=== PATIENT | female | born 1945 | race Caucasian/White ===

== ENCOUNTER 2017-03-26 08:51 | Inpatient (IN) | payer MEDICARE ==
[2017-03-26] VITALS (7 sets, daily range): BP systolic 129–180; BP diastolic 69–101; PULSE 69–97; RESP 16–20; TEMP 96.1–98.6; O2SAT 94–99
[~2017-03-26] VITALS: Ht 165.1 cm; Wt 82.0 kg
[~2017-03-26 08:51] MED LIST: ASPI81 PO; GLUCTAB PO; LEVO112T2 PO
--- NOTE | 2017-03-26 09:08 | PD ---
HPI Chief Complaint: Right sided numbness Time Seen by Provider: 08:55 Travel History International Travel<30 days: No Contact w/Intl Traveler<30days: No History of Present Illness HPI 71yo F with PMH of DM, hypothyroidism here with c/o right sided numbness when she woke up at 6am today. States she has been having some numbness in right arm for about a week and went to bed at 10pm yesterday and woke up this morning with right facial numbness and a little numbness in right lower extremity as well. Had a little weakness in right lower extremity. Pt states her symptoms have improved significantly since arriving in the ED. Denies any history of stroke, fever, chest pain, sob, n/v, abdominal pain. PFSH Past Medical History Hx Anticoagulant Therapy: No Arthritis: Yes Cardiovascular Problems: No High Cholesterol: Yes Chemotherapy: No Cerebrovascular Accident: No Diabetes: Yes Diminished Hearing: No Diverticulitis: Yes Genitourinary: Yes (UTI) Respiratory: No Immunizations Current: No Thyroid Disease: Yes Menopausal: Yes Tubal Ligation: Yes Past Surgical History Abdominal Surgery: Yes (COLON RESECTION) Cholecystectomy: Yes Gynecologic Surgery: Yes (BREAST BIOPSY) Hysterectomy: No Tonsillectomy: Yes Other Surgery: Yes (BREAST BIOPSY X 2, NEC RIGHT LATERIAL CYST REMOVAL ) Social History Alcohol Use: No Tobacco Use: No Substance Use: No Allergies-Medications (Allergen,Severity, Reaction): Coded Allergies: No Known Allergies (Verified , 03/26/17) Reported Meds & Prescriptions Reported Meds & Active Scripts Active Reported Methenamine Hippurate 1 Gram Tab 1 Gm PO BID Aspirin EC (Aspirin) 81 Mg Tabdr 81 Mg PO DAILY Metformin ER (Metformin HCl) 500 Mg Eddie 500 Mg PO DAILY With evening meal Levothyroxine (Levothyroxine Sodium) 100 Mcg Tab 100 Mcg PO DAILY Review of Systems Except as stated in HPI: all other systems reviewed are Neg Physical Exam Narrative GENERAL: 71yo F not in distress. SKIN: Focused skin assessment warm/dry. HEAD: Atraumatic. Normocephalic. EYES: Pupils equal and round. No scleral icterus. No injection or drainage. ENT: No nasal bleeding or discharge. Mucous membranes pink and moist. NECK: Trachea midline. No JVD. CARDIOVASCULAR: Regular rate and rhythm. No murmur appreciated. RESPIRATORY: No accessory muscle use. Clear to auscultation. Breath sounds equal bilaterally. GASTROINTESTINAL: Abdomen soft, non-tender, nondistended. Hepatic and splenic margins not palpable. MUSCULOSKELETAL: No obvious deformities. No clubbing. No cyanosis. No edema. NEUROLOGICAL: Awake and alert. No obvious cranial nerve deficits. Motor grossly within normal limits. Normal speech. Sensation is equal in bilateral face, arm and leg now. PSYCHIATRIC: Appropriate mood and affect; insight and judgment normal. Data Data Last Documented VS Vital Signs Date Time Temp Pulse Resp B/P (MAP) Pulse Ox O2 Delivery O2 Flow Rate FiO2 03/26/17 10:33 16 99 Room Air 03/26/17 10:14 79 152/78 (102) 03/26/17 08:[address] Brain W/O Iv Contrast(Rout) (03/26/17 ) Complete Blood Count With Diff (03/26/17 09:05) Basic Metabolic Panel (Bmp) (03/26/17 09:05) Prothrombin Time / Inr (Pt) (03/26/17 09:05) Act Partial Throm Time (Ptt) (03/26/17 09:05) Aspirin (Aspirin) (03/26/17 10:00) Admit Order (Ed Use Only) (03/26/17 10:59) Consult Neurology (03/26/17 ) Labs Laboratory Tests Test 03/26/17 09:09 White Blood Count 6.2 TH/MM3 Red Blood Count 5.06 MIL/MM3 Hemoglobin 14.6 GM/DL Hematocrit 43.5 % Mean Corpuscular Volume 86.0 FL Mean Corpuscular Hemoglobin 28.8 PG Mean Corpuscular Hemoglobin Concent 33.4 % Red Cell Distribution Width 13.3 % Platelet Count 286 TH/MM3 Mean Platelet Volume 7.4 FL Neutrophils (%) (Auto) 52.7 % Lymphocytes (%) (Auto) 33.1 % Monocytes (%) (Auto) 11.0 % Eosinophils (%) (Auto) 2.2 % Basophils (%) (Auto) 1.0 % Neutrophils # (Auto) 3.3 TH/MM3 Lymphocytes # (Auto) 2.0 TH/MM3 Monocytes # (Auto) 0.7 TH/MM3 Eosinophils # (Auto) 0.1 TH/MM3 Basophils # (Auto) 0.1 TH/MM3 CBC Comment DIFF FINAL Differential Comment Prothrombin Time 10.3 SEC Prothromb Time International Ratio 0.9 RATIO Activated Partial Thromboplast Time 26.6 SEC Blood Urea Nitrogen 15 MG/DL Creatinine 0.99 MG/DL Random Glucose 168 MG/DL Calcium Level 9.4 MG/DL Sodium Level 141 MEQ/L Potassium Level 3.8 MEQ/L Chloride Level 107 MEQ/L Carbon Dioxide Level 24.2 MEQ/L Anion Gap 10 MEQ/L Estimat Glomerular Filtration Rate 55 ML/MIN MDM Medical Decision Making Medical Screen Exam Complete: Yes Emergency Medical Condition: Yes Interpretation(s) EKG: NSR 91bpm. RBBB. Differential Diagnosis TIA vs. electrolyte abnormality vs. anxiety Narrative Course 71yo F with right sided numbness when she woke up this morning that has almost completely resolved. Labs reviewed, no leukocytosis. Glucose mildly elevated at 168. CT brain showed slight atrophic and small vessel ischemic changes without any evidence for acute hemorrhage or mass effect. Pt took 81mg of aspirin today. Will give another dose for total of 325mg. Pt to be admitted for observation for TIA. Discussed with Dr. Alcantar. Diagnosis Primary Impression: TIA (transient ischemic attack) Qualified Codes: G45.9 - Transient cerebral ischemic attack, unspecified Admitting Information Admitting Physician Requests: Observation Tita Ace DO Mar 26, 2017 09:08
[2017-03-26 09:18] LABS: AUTOMATED NEUTROPHIL # 3.3 TH/MM3 (1.8-7.7); BASOPHIL # 0.1 TH/MM3 (0-0.2); EOSINOPHIL # 0.1 TH/MM3 (0-0.4); EOSINOPHIL % 2.2 % (0.0-4.0); HEMATOCRIT 43.5 % (35.0-46.0); HEMO FLAGS DIFF FINAL; LYMPH % 33.1 % (9.0-44.0); MEAN CORPUSCULAR HEMOGLOBIN 28.8 PG (27.0-34.0); MEAN CORPUSCULAR HGB CONC 33.4 % (32.0-36.0); NEUT % 52.7 % (16.0-70.0); PLATELET COUNT 286 TH/MM3 (150-450); RED BLOOD COUNT 5.06 MIL/MM3 (4.00-5.30); RED CELL DISTRIBUTION WIDTH 13.3 % (11.6-17.2); WHITE BLOOD COUNT 6.2 TH/MM3 (4.0-11.0)
[2017-03-26 09:29] LABS: APTT (PATIENT) 26.6 SEC (24.3-30.1); INTERNATIONAL NORMALIZED RATIO 0.9 RATIO; PROTHROMBIN TIME - PATIENT 10.3 SEC (9.8-11.6)
--- NOTE | 2017-03-26 09:37 | RADRPT ---
EXAM DATE/TIME: 03/26/2017 09:26 [facility] COMPARISON: No previous studies available for comparison. INDICATIONS : Right arm numbness and weakness x 1 week. Right facial droop today. RADIATION DOSE: 64.79 CTDIvol (mGy) MEDICAL HISTORY : Diverticulitis. Diabetes mellitus type 2. SURGICAL HISTORY : Colon resection. Tubal ligation.Cholecystectomy. ENCOUNTER: Initial ACUITY: 1 week PAIN SCALE: 0/10 LOCATION: cranial TECHNIQUE: Multiple contiguous axial images were obtained of the head. Using automated exposure control and adj ustment of the mA and/or kV according to patient size, radiation dose was kept as low as reasonably a chievable to obtain optimal diagnostic quality images. DICOM format image data is available electro nically for review and comparison. FINDINGS: There is no evidence for intracranial hemorrhage, mass effect, mass lesions, or edema. The visualize d bony structures appear intact. Slight degree of brain atrophy is seen. Slight periventricular whit e matter changes are seen nonspecific mostly consistent with chronic small vessel ischemic changes. There are no signs of acute infarction for technique. CONCLUSION: Slight atrophic and small vessel ischemic changes without any evidence for acute hemorrhage or mass effect. Lillian Calloway MD on March 26, 2017 at 9:33 Board Certified Radiologist. This report was verified electronically.
[2017-03-26] MEDS ORDERED: LEVO100T5 PO (09:38)
[2017-03-26] MEDS ORDERED: METF500T4 PO (09:38)
[2017-03-26] MEDS ORDERED: ASPIRIN 325 MG TAB PO ONE (10:00)
[2017-03-26 10:13] LABS: BICARBONATE 24.2 MEQ/L (21.0-32.0); POTASSIUM 3.8 MEQ/L (3.5-5.1)
[2017-03-26] MEDS ORDERED: ASPI81TA11 PO (10:17)
[2017-03-26] MEDS ORDERED: METH1TAB2 PO (10:17)
[2017-03-26] MEDS ORDERED: ASPIRIN 81 MG CHEW TAB CHEW ONE ×2 (11:15)
[2017-03-26] MEDS ORDERED: ENALAPRILAT 1.25 MG/ML VIAL IV PRN (11:30)
[2017-03-26] MEDS ORDERED: SODIUM CHLORIDE 0.9% FLUSH 5 ML FLUSH IV FLUSH PRN (11:30)
[2017-03-26] MEDS ORDERED: GLUCAGON 1 MG/ML VIAL OTHER PRN ×2 (11:30)
[2017-03-26] MEDS ORDERED: DEXTROSE 50% IN WATER 50 ML VIAL(D50) IV PUSH PRN (11:30)
[2017-03-26] MEDS ORDERED: DEXTROSE 50% IN WATER 50 ML VIAL(D50) IV PRN (11:30)
--- NOTE | 2017-03-26 11:35 | HHI.HP ---
HPI Service [facility] Hospitalists Primary Care Physician Non-Staff Admission Diagnosis TIA Chief Complaint: rt sided upper lower extremity numbness Travel History International Travel<30 Days: No Contact w/Intl Traveler <30 Da: No Traveled to Known Affected Are: No History of Present Illness 71yo F with PMH of DM, hypothyroidism here with c/o right sided numbness when she woke up at 6am today. States she has been having some numbness in right arm for about a week and went to bed at 10pm yesterday and woke up this morning with right facial numbness and a little numbness in right lower extremity as well. Had a little weakness in right lower extremity. Pt states her symptoms have improved significantly since arriving in the ED. Denies any history of stroke, fever, chest pain, sob, n/v, abdominal pain. History suggests TIA will admit for work up . Note patient has been under large amount of stress due to family problems which she thinks are contributing to symptoms. Review of Systems Other numbness Past Family Social History Past Medical History djd,dm,hypothyroid chronic uti Past Surgical History colon partial resection for diverticulitis in past ,tonsil,breast bx breast cyst removed Reported Medications Methenamine Hippurate 1 Gram Tab 1 Gm PO BID Aspirin EC (Aspirin) 81 Mg Tabdr 81 Mg PO DAILY Metformin ER (Metformin HCl) 500 Mg Eddie 500 Mg PO DAILY With evening meal Levothyroxine (Levothyroxine Sodium) 100 Mcg Tab 100 Mcg PO DAILY Allergies: Coded Allergies: No Known Allergies (Verified , 03/26/17) Social History NS,ND Physical Exam Vital Signs Vital Signs Date Time Temp Pulse Resp B/P (MAP) Pulse Ox O2 Delivery O2 Flow Rate FiO2 03/26/17 11:07 78 16 160/81 (107) 98 Room Air 03/26/17 10:33 16 99 Room Air 03/26/17 10:14 79 16 152/78 (102) 99 Room Air 03/26/17 09:31 96 16 98 Room Air 03/26/17 08:55 98.1 97 16 180/98 (125) 98 Physical Exam GENERAL: This is a well-nourished, well-developed patient, in no apparent distress. SKIN: No rashes, ecchymoses or lesions. Cool and dry. HEAD: Atraumatic. Normocephalic. No temporal or scalp tenderness. EYES: Pupils equal round and reactive. Extraocular motions intact. No scleral icterus. No injection or drainage. ENT: Nose without bleeding, purulent drainage or septal hematoma. Throat without erythema, tonsillar hypertrophy or exudate. Uvula midline. Airway patent. NECK: Trachea midline. No JVD or lymphadenopathy. Supple, nontender, no meningeal signs. CARDIOVASCULAR: Regular rate and rhythm without murmurs, gallops, or rubs. RESPIRATORY: Clear to auscultation. Breath sounds equal bilaterally. No wheezes , rales, or rhonchi. GASTROINTESTINAL: Abdomen soft, non-tender, nondistended. No hepato-splenomegaly , or palpable masses. No guarding. MUSCULOSKELETAL: Extremities without clubbing, cyanosis, or edema. No joint tenderness, effusion, or edema noted. No calf tenderness. Negative Homans sign bilaterally. NEUROLOGICAL: Awake and alert. Cranial nerves II through XII intact. Motor and sensory grossly within normal limits. Five out of 5 muscle strength in all muscle groups. Normal speech. Laboratory Laboratory Tests Test 03/26/17 09:09 White Blood Count 6.2 Red Blood Count 5.06 Hemoglobin 14.6 Hematocrit 43.5 Mean Corpuscular Volume 86.0 Mean Corpuscular Hemoglobin 28.8 Mean Corpuscular Hemoglobin Concent 33.4 Red Cell Distribution Width 13.3 Platelet Count 286 Mean Platelet Volume 7.4 Neutrophils (%) (Auto) 52.7 Lymphocytes (%) (Auto) 33.1 Monocytes (%) (Auto) 11.0 Eosinophils (%) (Auto) 2.2 Basophils (%) (Auto) 1.0 Neutrophils # (Auto) 3.3 Lymphocytes # (Auto) 2.0 Monocytes # (Auto) 0.7 Eosinophils # (Auto) 0.1 Basophils # (Auto) 0.1 CBC Comment DIFF FINAL Differential Comment Prothrombin Time 10.3 Prothromb Time International Ratio 0.9 Activated Partial Thromboplast Time 26.6 Blood Urea Nitrogen 15 Creatinine 0.99 Random Glucose 168 Calcium Level 9.4 Sodium Level 141 Potassium Level 3.8 Chloride Level 107 Carbon Dioxide Level 24.2 Anion Gap 10 Estimat Glomerular Filtration Rate 55 Result Diagram: 03/26/17 0909 03/26/17 0909 Imaging Last [address] 03/26/17 0000 Signed Impressions: Service Date/Time: March 09:26 - CONCLUSION: Slight atrophic and small vessel ischemic changes without any evidence for acute hemorrhage or mass effect. Lillian Calloway MD Course started on full asa Caprini VTE Risk Assessment Caprini VTE Risk Assessment: Mod/High Risk (score >= 2) Caprini Risk Assessment Model Point Value = 1 Point Value = 2 Point Value = 3 Point Value = 5 Age 41-60 Minor surgery BMI > 25 kg/m2 Swollen legs Varicose veins or History of unexplained or recurrent spontaneous Oral contraceptives or hormone replacement Sepsis (< 1 month) Serious lung disease, including pneumonia (< 1 month) Abnormal pulmonary function Acute myocardial infarction Congestive heart failure (< 1 month) History of inflammatory bowel disease Medical patient at bed rest Age 61-74 Arthroscopic surgery Major open surgery (> 45 min) Laparoscopic surgery (> 45 min) Malignancy Confined to bed (> 72 hours) Immobilizing plaster cast Central venous access Age >= 75 History of VTE Family history of VTE Factor V Leiden Prothrombin [id number] Lupus anticoagulant Anticardiolipin antibodies Elevated serum homocysteine Heparin-induced thrombocytopenia Other congenital or acquired thrombophilia Stroke (< 1 month) Elective arthroplasty Hip, pelvis, or leg fracture Acute spinal cord injury (< 1 month) Prophylaxis Regimen Total Risk Factor Score Risk Level Prophylaxis Regimen 0-1 Low Early ambulation 2 Moderate Order ONE of the following: *Sequential Compression Device (SCD) *Heparin 5000 units SQ BID 3-4 Higher Order ONE of the following medications: *Heparin 5000 units SQ TID *Enoxaparin/Lovenox 40 mg SQ daily (WT < 150 kg, CrCl > 30 mL/min) *Enoxaparin/Lovenox 30 mg SQ daily (WT < 150 kg, CrCl > 10-29 mL/min) *Enoxaparin/Lovenox 30 mg SQ BID (WT < 150 kg, CrCl > 30 mL/min) AND/OR *Sequential Compression Device (SCD) 5 or more Highest Order ONE of the following medications: *Heparin 5000 units SQ TID (Preferred with Epidurals) *Enoxaparin/Lovenox 40 mg SQ daily (WT < 150 kg, CrCl > 30 mL/min) *Enoxaparin/Lovenox 30 mg SQ daily (WT < 150 kg, CrCl > 10-29 mL/min) *Enoxaparin/Lovenox 30 mg SQ BID (WT < 150 kg, CrCl > 30 mL/min) AND *Sequential Compression Device (SCD) Assessment and Plan Problem List: (1) TIA (transient ischemic attack) ICD Codes: G45.9 - Transient cerebral ischemic attack, unspecified Status: Acute Plan: probable TIA will start work up get neuro consult Assessment and Plan further plan pending test results Code Status full Discussed Condition With patient Physician Certification 2 Midnight Certification Type: Admission for Inpatient Services Order for Inpatient Services The services are ordered in accordance with Medicare regulations or non- Medicare payer requirements, as applicable. In the case of services not specified as inpatient-only, they are appropriately provided as inpatient services in accordance with the 2-midnight benchmark. Estimated LOS (days): 2 2 days is the estimated time the patient will need to remain in the hospital, assuming treatment plan goals are met and no additional complications. Post-Hospital Plan: Not yet determined Problem Qualifiers (1) TIA (transient ischemic attack): Qualified Codes: G45.9 - Transient cerebral ischemic attack, unspecified Huang Hernandez MD Mar 26, 2017 11:35
[2017-03-26] MEDS ORDERED: GADODIAMIDE PF 287 MG/ML 20 ML VIAL (for RAD MRI) IVCONTRAST ONE (15:18)
--- NOTE | 2017-03-26 15:23 | RADRPT ---
EXAM DATE/TIME: 03/26/2017 14:14 [facility] COMPARISON: No previous studies available for comparison. INDICATIONS : CVA. Right side numbness and tingling. MEDICAL HISTORY : Diabetes mellitus type 2. SURGICAL HISTORY : Cholecystectomy. TKA. Breast biopsy. Colon. Salivary gland. ENCOUNTER: Subsequent ACUITY: 1 week PAIN SCORE: 3/10 LOCATION: cranial TECHNIQUE: Multiplanar, multisequence MRI of the brain was performed without contrast. FINDINGS: CEREBRUM: The ventricles are normal for age. No evidence of midline shift, mass lesion, hemorrhage or acute in farction. No extraaxial fluid collections are seen. The pituitary gland and suprasellar cistern are normal in configuration. WHITE MATTER: No significant signal abnormalities are seen in the white matter. POSTERIOR FOSSA: The cerebellum and brainstem are intact. The 4th ventricle is midline. The cerebellopontine angle is unremarkable. The cerebellar tonsils are normal in position. DIFFUSION IMAGING: No focal areas of restricted diffusion are seen. No evidence of acute infarction. EXTRACRANIAL: The visualized portions of the orbits and paranasal sinuses are unremarkable. CONCLUSION: 1. No evidence of acute intracranial pathology. No masses are identified. Albaro Bui MD on March 26, 2017 at 15:21 Board Certified Radiologist. This report was verified electronically.
--- NOTE | 2017-03-26 15:24 | RADRPT ---
EXAM DATE/TIME: 03/26/2017 14:14 [facility] COMPARISON: No previous studies available for comparison. INDICATIONS : TIA. Right side numbness and tingling. CONTRAST: 20 cc Omniscan (gadodiamide) IV MEDICAL HISTORY : Diabetes mellitus type 2. SURGICAL HISTORY : Cholecystectomy. TKA. Breast biopsy. Colon. Salivary gland. ENCOUNTER: Subsequent ACUITY: 1 week PAIN SCORE: 3/10 LOCATION: cranial Percent stenosis is calculated using the diameter of the stenotic region over the diameter of the nor mal distal internal carotid artery. TECHNIQUE: Bolus infused MRA of the extracranial circulation was performed using a neurovascular coil. Post pro cessing was performed including rotating subvolume maximum intensity projections of each carotid johnathan ry, rotating full volume maximum intensity projections of both carotid arteries, sagittal and coronal sliding thin slab reformations of each carotid artery, and left oblique sliding thin slab reformatio n through the aortic arch to include the origin of the arch branch vessels. FINDINGS: AORTIC ARCH: There is a three vessel origin of the great vessels from the aorta. No evidence of ostial narrowing. RIGHT CAROTID: The common carotid artery is intact. The carotid bulb has a normal configuration without ulceration or narrowing. The internal carotid artery lumen is smooth without stenosis. The external carotid ar vi is intact. LEFT CAROTID: The common carotid artery is intact. The carotid bulb has a normal configuration without ulceration or narrowing. The internal carotid artery lumen is smooth without stenosis. The external carotid ar vi is intact. VERTEBRALS: The vertebral arteries have a symmetric diameter. No stenotic lesions are seen. CONCLUSION: 1. Unremarkable MR angiography of the cervicobrachial arch and carotid arteries. There is 0-10% steno sis bilaterally Albaro Bui MD on March 26, 2017 at 15:22 Board Certified Radiologist. This report was verified electronically.
--- NOTE | 2017-03-26 15:40 | RADRPT ---
EXAM DATE/TIME: 03/26/2017 14:14 [facility] COMPARISON: No previous studies available for comparison. INDICATIONS : CVA. Right side numbness and tingling. MEDICAL HISTORY : Diabetes mellitus type 2. SURGICAL HISTORY : Cholecystectomy. Tonsillectomy. Tubal ligation. TKA. Breast biopsy. Colon. Salivary gland. ENCOUNTER: Subsequent ACUITY: 1 week PAIN SCORE: 3/10 LOCATION: cranial Please note a normal MRA of the brain does not entirely exclude the possibility of a small aneurysm, nor the possibility of distal intracranial vessel disease. TECHNIQUE: 3D time of flight MRA was performed. Source images, multiplanar STS MIP, and 3D volume MIP reconstru ctions were reviewed. FINDINGS: There is excellent visualization of the major intracranial arteries out to the second-order branch ve ssels. There is no evidence for aneurysm, vessel truncation or stenosis, and no evidence for vascula r malformation. CONCLUSION: Normal examination. Simon Guevara MD on March 26, 2017 at 15:37 Board Certified Radiologist. This report was verified electronically.
[2017-03-26 15:54] LABS: HEMOGLOBIN A1a 1.2 %; HEMOGLOBIN A1b 1.9 %; HEMOGLOBIN LA1C 2.4 %; HEMOGLOBIN P3 3.9 %
[2017-03-26] MEDS: INSULIN ASPART SUPPLEMENTAL SCALE SQ SCH ×2 (16:00→20:07)
[2017-03-26] MEDS ORDERED: INSULIN ASPART SUPPLEMENTAL SCALE SQ SCH (16:00)
[2017-03-26] MEDS: SODIUM CHLORIDE 0.9% FLUSH 5 ML FLUSH IV FLUSH SCH (20:07)
[2017-03-26] MEDS ORDERED: METHENAMINE HIPPURATE 1 GM PO SCH (21:00)
[2017-03-26] MEDS ORDERED: IBUPROFEN 600 MG TAB PO PRN (21:30)
[2017-03-27] VITALS: BP 117/68; PULSE 74; RESP 20; TEMP 97.6; O2SAT 95
[2017-03-27 04:00] VITALS: BP 113/58; PULSE 71; RESP 20; TEMP 96.7; O2SAT 95
[2017-03-27] MEDS: INSULIN ASPART SUPPLEMENTAL SCALE SQ SCH ×2 (05:35→11:00)
[2017-03-27] MEDS ORDERED: LEVOTHYROXINE SODIUM 100 MCG TAB PO SCH (06:00)
[2017-03-27] MEDS: SODIUM CHLORIDE 0.9% FLUSH 5 ML FLUSH IV FLUSH SCH (08:07)
[2017-03-27 08:38] VITALS: BP 111/70; PULSE 68; RESP 15; TEMP 97.9; O2SAT 97
[2017-03-27] MEDS ORDERED: metFORMIN HCL 500 MG TAB PO SCH (09:00)
[2017-03-27] MEDS ORDERED: ASPIRIN 325 MG TAB PO SCH (09:00)
[2017-03-27 09:53] LABS: HDL CHOLESTEROL 46.7 MG/DL (40.0-60.0)
--- NOTE | 2017-03-27 10:49 | HHI.PR ---
Subjective Remarks Patient feeling ok still with numbing feeling rt upper extremity all studies mri brain ,mra carotids monitor all normal,2d echo negative will get MRI c spine may be nerve root and plan to discharge later today on full asa and can use motrin prn . Objective Vitals GENERAL: SKIN: Warm and dry. HEAD: Atraumatic. Normocephalic. EYES: Pupils equal and round. No scleral icterus. No injection or drainage. ENT: No nasal bleeding or discharge. Mucous membranes pink and moist. NECK: Trachea midline. No JVD. CARDIOVASCULAR: Regular rate and rhythm. RESPIRATORY: No accessory muscle use. Clear to auscultation. Breath sounds equal bilaterally. GASTROINTESTINAL: Abdomen soft, non-tender, nondistended. Hepatic and splenic margins not palpable. MUSCULOSKELETAL: Extremities without clubbing, cyanosis, or edema. No obvious deformities. NEUROLOGICAL: Awake and alert. No obvious cranial nerve deficits. Motor grossly within normal limits. Five out of 5 muscle strength in the arms and legs. Normal speech. PSYCHIATRIC: Appropriate mood and affect; insight and judgment normal. Vital Signs Date Time Temp Pulse Resp B/P (MAP) Pulse Ox O2 Delivery O2 Flow Rate FiO2 03/27/17 08:38 97.9 68 15 111/70 (84) 97 03/27/17 04:00 96.7 71 20 113/58 (76) 95 03/27/17 00:00 97.6 74 20 117/68 (84) 95 03/26/17 23:00 69 03/26/17 20:00 96.1 80 20 129/69 (89) 96 03/26/17 16:24 98.6 80 16 143/101 (115) 94 03/26/17 12:12 80 16 156/83 (107) 98 03/26/17 11:07 78 16 160/81 (107) 98 Room Air Result Diagram: 03/26/17 0909 03/26/17 0909 Imaging Last [address] 03/26/17 0000 Signed Impressions: Service Date/Time: March 09:26 - CONCLUSION: Slight atrophic and small vessel ischemic changes without any evidence for acute hemorrhage or mass effect. Lillian Calloway MD A/P Problem List: (1) TIA (transient ischemic attack) ICD Codes: G45.9 - Transient cerebral ischemic attack, unspecified Status: Acute Plan: probable TIA but may be radiculopathy from neck await mri c spine home later today Assessment and Plan as above discharge on full asa Problem Qualifiers (1) TIA (transient ischemic attack): Qualified Codes: G45.9 - Transient cerebral ischemic attack, unspecified Huang Hernandez MD Mar 27, 2017 10:49
--- NOTE | 2017-03-27 12:24 | ECHRPT ---
Indication: CVA/TIA CONCLUSIONS Normal left ventricular size. Mild concentric left ventricular hypertrophy. The left ventricular systolic function is moderately reduced with an estimated ejection fraction in the range of 40-45%. There is global left ventricular dysfunction. No atrial shunt is demonstrated by color flow Doppler interrogation. Mild thickening of the mitral valve leaflets. Trace mitral valve regurgitation. Mitral annular calcification is present. There is mild tricuspid valve regurgitation. Normal estimated pulmonary pressures. The inferior vena cava (IVC) is normal in size. BP: 113 / 58 HR: 71 Rhythm: Sinus MEASUREMENTS (Male / Female) Normal Values Technical Quality:Fair 2D ECHO LV Diastolic Diameter PLAX 2.7 cm 4.2 - 5.9 / 3.9 - 5.3 cm LV Systolic Diameter PLAX 2.2 cm IVS Diastolic Thickness 1.3 cm 0.6 - 1.0 / 0.6 - 0.9 cm LVPW Diastolic Thickness 1.3 cm 0.6 - 1.0 / 0.6 - 0.9 cm LV Relative Wall Thickness 0.9 LVOT Diameter 2.2 cm Aortic Root Diameter 3.4 cm LA Systolic Diameter LX 2.6 cm 3.0 - 4.0 / 2.7 - 3.8 cm M-MODE AV Cusp Separation MM 2.1 cm DOPPLER AV Peak Velocity 208.0 cm/s AV Peak Gradient 17.3 mmHg AV Mean Gradient 8.0 mmHg AV Velocity Time Integral 41.3 cm LVOT Peak Velocity 84.2 cm/s LVOT Peak Gradient 2.8 mmHg LVOT Velocity Time Integral 20.3 cm LVOT Cardiac Index 2794.9 cm/minm AV Area Cont Eq vti 1.9 cm AV Area Cont Eq pk 1.5 cm Mitral E Point Velocity 72.1 cm/s Mitral A Point Velocity 91.3 cm/s Mitral E to A Ratio 0.8 LV E' Lateral Velocity 9.6 cm/s Mitral E to LV E' Lateral Ratio 7.5 LV E' Septal Velocity 7.5 cm/s Mitral E to LV E' Septal Ratio 9.6 PV Peak Velocity 74.4 cm/s PV Peak Gradient 2.2 mmHg FINDINGS LEFT VENTRICLE Normal left ventricular size. Mild concentric left ventricular hypertrophy. The left ventricular systolic function is moderately reduced with an estimated ejection fraction in the range of 40-45%. There is global left ventricular dysfunction. RIGHT VENTRICLE Normal right ventricular size and systolic function. LEFT ATRIUM The left atrial size is normal. RIGHT ATRIUM The right atrial size is normal. ATRIAL SEPTUM No atrial level shunt is demonstrated by color flow Doppler interrogation. AORTA The aortic root and proximal ascending aorta are normal in size on limited imaging. MITRAL VALVE Mild thickening of the mitral valve leaflets. Trace mitral valve regurgitation. Mitral annular calcification is present. AORTIC VALVE Trileaflet aortic valve. No aortic valve stenosis or regurgitation. TRICUSPID VALVE Structurally normal tricuspid valve. There is mild tricuspid valve regurgitation. Normal estimated pulmonary pressures. PULMONARY VALVE No pulmonary valve regurgitation or stenosis. VESSELS The inferior vena cava (IVC) is normal in size. PERICARDIUM No pericardial effusion. Sawyer Rush MD (Electronically Signed) Final Date:27 March 2017 12:24
[2017-03-27] MEDS ORDERED: CLOPIDOGREL 75 MG TAB PO ONE (13:00)
[2017-03-27] MEDS ORDERED: PLAV75TA29 PO (13:37)
--- NOTE | 2017-03-27 13:43 | HHI.DS ---
Discharge Summary Admission Date Mar 26, 2017 at 11:00 Admitting Diagnosis TIA (1) TIA (transient ischemic attack) Diagnosis: Principal ICD Codes: G45.9 - Transient cerebral ischemic attack, unspecified Status: Acute Brief History 71yo F with PMH of DM, hypothyroidism here with c/o right sided numbness when she woke up at 6am today. States she has been having some numbness in right arm for about a week and went to bed at 10pm yesterday and woke up this morning with right facial numbness and a little numbness in right lower extremity as well. Had a little weakness in right lower extremity. Pt states her symptoms have improved significantly since arriving in the ED. Denies any history of stroke, fever, chest pain, sob, n/v, abdominal pain. History suggests TIA will admit for work up . Note patient has been under large amount of stress due to family problems which she thinks are contributing to symptoms. CBC/BMP: 03/26/17 0909 03/26/17 0909 Significant Findings Laboratory Tests Test 03/26/17 09:09 03/27/17 04:59 Monocytes (%) (Auto) 11.0 % (0.0-8.0) Random Glucose 168 MG/DL (74-106) Estimat Glomerular Filtration Rate 55 ML/MIN (>89) Hemoglobin A1c 6.1 % (4.3-6.0) LDL Cholesterol 122 MG/DL (0-99) PE at Discharge GENERAL: SKIN: Warm and dry. HEAD: Atraumatic. Normocephalic. EYES: Pupils equal and round. No scleral icterus. No injection or drainage. ENT: No nasal bleeding or discharge. Mucous membranes pink and moist. NECK: Trachea midline. No JVD. CARDIOVASCULAR: Regular rate and rhythm. RESPIRATORY: No accessory muscle use. Clear to auscultation. Breath sounds equal bilaterally. GASTROINTESTINAL: Abdomen soft, non-tender, nondistended. Hepatic and splenic margins not palpable. MUSCULOSKELETAL: Extremities without clubbing, cyanosis, or edema. No obvious deformities. NEUROLOGICAL: Awake and alert. No obvious cranial nerve deficits. Motor grossly within normal limits. Five out of 5 muscle strength in the arms and legs. Normal speech. PSYCHIATRIC: Appropriate mood and affect; insight and judgment normal. Hospital Course Patient admitted with rt upper extremity numbness for several days admitted with hx dm and hypothyroid and started on asa ,work negative MRI brain,MRA 2d echo monitor lab work A1C 6.1 cholesterol ldl 122 diet discussed will try fish oil and or red yeast rice and consider statin . I sent note to PCP to follow up on MRI c spine as this may be radiculopathy. Patient concerned this was TIA sent out patient referral to neurology and will discharge home on plavix and asa 81mg. Patient discharge in good condition with referral and meds sent to pharmacy and note to PCP sent for follow up. Pt Condition on Discharge: Good Discharge Disposition: Discharge Home Discharge Instructions DIET: Follow Instructions for: Heart Healthy Diet Activities you can perform: Regular-No Restrictions New Medications: Clopidogrel (Plavix) 75 Mg Tab 75 MG PO DAILY for Blood Clot Prevention for 30 Days, #30 TAB 0 Refills Continued Medications: Aspirin DR (Aspirin EC) 81 Mg Tabdr 81 MG PO DAILY, TAB 0 Refills Levothyroxine (Levothyroxine) 100 Mcg Tab 100 MCG PO DAILY for Thyroid, #30 TAB 0 Refills Metformin ER (Metformin ER) 500 Mg Eddie 500 MG PO DAILY for Blood Sugar Management, TAB 0 Refills With evening meal Methenamine Hippurate (Methenamine Hippurate) 1 Gram Tab 1 GM PO BID for Infection, TAB 0 Refills Huang Hernandez MD Mar 27, 2017 13:42
--- NOTE | 2017-03-27 16:04 | RADRPT ---
EXAM DATE/TIME: 03/27/2017 14:59 [facility] COMPARISON: No previous studies available for comparison. INDICATIONS : Extremity numbness. Right upper extremity numbness. MEDICAL HISTORY : Diabetes mellitus type 2. SURGICAL HISTORY : Total knee replacement, right. Cholecystectomy. Tonsillectomy. ENCOUNTER: Initial ACUITY: 1 day PAIN SCORE: 0/10 LOCATION: neck TECHNIQUE: Multiplanar, multisequence MRI examination of the cervical spine was performed. FINDINGS: VERTEBRAE: Moderate degenerative changes evident. ALIGNMENT: No evidence of subluxation. C2-C3: The thecal sac has a normal configuration. There is no evidence of disc herniation or spinal canal s tenosis. The neural foramina are patent bilaterally. C3-C4: The thecal sac has a normal configuration. There is no evidence of disc herniation or spinal canal s tenosis. The neural foramina are patent bilaterally. C4-C5: Moderate uncinate ridging is present with minimal bilateral neural foramina encroachment. There is m inimal spinal stenosis. C5-C6: Moderate uncinate ridging is present with obliteration of the thecal sac and moderate bilateral neura l foramina encroachment. C6-C7: Mild uncinate ridging is present the minimal bilateral neural foramina encroachment. There is minima l effacement of the thecal sac. C7-T1: The thecal sac has a normal configuration. There is no evidence of disc herniation or spinal canal s tenosis. The neural foramina are patent bilaterally. CONCLUSION: Degenerative changes as described above from C4-C7. Spinal stenosis appears reasonably significant a t the C5 and C6 levels. C4-C5 is almost as bad. Carmine Leblanc MD FACR on March 27, 2017 at 15:58 Board Certified Radiologist. This report was verified electronically.
== END 2017-03-27 15:26 | disposition home or self-care (01) | DRG 69 ==
LOC: PHED 08:51 → PHEDA 11:00 → OBSVTOIN 11:24 → PH3B 12:24
PROVIDERS: ADMIT Internal Medicine; ATTEND Internal Medicine
DX: G45.9 Transient cerebral ischemic attack, unspecified (principal); E11.9 Type 2 diabetes mellitus without complications; E03.9 Hypothyroidism, unspecified; E78.00 Pure hypercholesterolemia, unspecified; Z96.651 Presence of right artificial knee joint; M19.90 Unspecified osteoarthritis, unspecified site; Z79.82 Long term (current) use of aspirin; Z79.84 Long term (current) use of oral hypoglycemic drugs
CPT/HCPCS: 70450; 70544; 70548; 70551; 72141; 80048; 80061; 82948; 83036; 85025; 85610; 85730; 93306; A9579; G8987-GP; G8988-GP

== ENCOUNTER → 2017-04-20 | Day surgery (SDC) | payer MEDICARE ==
[~2017-04-20] MED LIST changes: -ASPI81 PO; +ASPI81TA11 PO; -GLUCTAB PO; +LEVO100T5 PO; -LEVO112T2 PO; +METF500T4 PO; +METH1TAB2 PO; +PLAV75TA29 PO; +PROPOFOL 200 MG/20 ML AMP IV ONE
--- NOTE | 2017-04-20 12:07 | GIPROC ---
[facility] [address] [facility], [address] EGD PROCEDURE REPORT EXAM DATE: 04/20/2017 PATIENT NAME: Marilin Cedeño MR #: [id number] BIRTHDATE: 1945 ATTENDING: Sunday Zeng MD ORDER #: [id number] [employer]: Teto Jang RN STATUS: outpatient INDICATIONS: The patient is a 71 yr old female here for an EGD due to history of esophageal reflux PROCEDURE PERFORMED: EGD w/ biopsy MEDICATIONS: None and Per Anesthesia. TOPICAL ANESTHETIC: CONSENT: The patient understands the risks and benefits of the procedure and understands that these risks include, but are not limited to: sedation, allergic reaction, infection, perforation and/or bleeding. Alternative means of evaluation and treatment include, among others: physical exam, x-rays, and/or surgical intervention. The patient elects to proceed with this endoscopic procedure. medical equipment was checked for proper function. Hand hygiene and appropriate measures for infection prevention was taken. After the risks, benefits and alternatives of the procedure were thoroughly explained, Informed consent was verified, confirmed and timeout was successfully executed by the treatment team. The patient was anesthetized with topical anesthesia and the EG-[id number] ([id number]) endoscope was introduced through the mouth and advanced to the second portion of the duodenum. Retroflexed views revealed a hiatal hernia The gastroscope was then slowly withdrawn and removed. ESOPHAGUS: There was LA Class A esophagitis noted. A biopsy was performed using cold forceps. Sample sent for histology. STOMACH: There was erythematous moderate gastritis in the gastric antrum. A biopsy was performed using cold forceps. Sample sent for histology. DUODENUM: The duodenal mucosa appeared normal in the bulb and second portion of the duodenum. ADVERSE EVENTS: There were no complications. IMPRESSIONS: 1. There was LA Class A esophagitis noted; biopsy was performed 2. There was erythematous gastritis in the gastric antrum; biopsy was performed 3. Normal duodenal mucosa in the bulb and second portion of the duodenum 4. Retroflexed views revealed a hiatal hernia RECOMMENDATIONS: 1. Await biopsy results. Biopsy results will not be ready for 7-10 days. If you don't hear from us in two weeks, call our office for biopsy results. 2. Anti-reflux regimen 3. Continue PPI 4. Follow-up: GI clinic 2 week(s) PATIENT CONDITION: stable DISPOSITION: Home REPEAT EXAM: Return 3 years EGD pending biopsy results Sunday Zeng MD eSigned: Sunday Zeng MD 04/20/2017 12:07 PM cc: Janae Sanabria [facility] Marizol Elizabeth M.D. PATIENT NAME: Marilin Cedeño MR#: [id number]
== END | disposition home or self-care (01) ==
LOC: ESDC 10:07
PROVIDERS: ATTEND Internal Medicine Gastroenterology
DX: K21.9 Gastro-esophageal reflux disease without esophagitis (principal); K44.9 Diaphragmatic hernia without obstruction or gangrene; K20.9 Esophagitis, unspecified; K29.70 Gastritis, unspecified, without bleeding
CPT/HCPCS: 88305; 88312